=== PATIENT | male | born 1995 | race Caucasian/White ===

== ENCOUNTER → 2021-04-05 11:47 | Outpatient (CLI) | payer OTHER, SELFPAY ==
--- NOTE | 2021-04-05 11:54 | XR_ITS ---
PROCEDURE: XR KNEE LT 3V CLINICAL INDICATION: KNEE PAIN, LT COMPARISON: CR [id number] XR knee LT 3V from 08/26/2018 FINDINGS: No fracture or dislocation. No lytic or blastic change. There is normal mineralization. The joint spaces are well-preserved. No significant degenerative/arthritic changes. No erosive changes evident. Other findings:None. IMPRESSION: No acute findings. Dictated by: Dalton Machado MD 04/05/2021 12:07 Dalton Machado MD in [facility] 04/05/2021 12:07
== END ==
PROVIDERS: PCP Nurse Practitioner Family; Visit Provider Family Medicine
DX: M25.562 Pain in left knee (principal)
CPT/HCPCS: 73562